=== PATIENT | female | born 2000 | race Caucasian/White ===

== ENCOUNTER 2022-05-12 12:06 | Emergency (ER) | payer OTHER, SELFPAY ==
--- NOTE | ~2022-05-12 | XR_ITS ---
EXAMINATION: XR hand RT min 3V DATE: 05/12/2022 12:30 INDICATION: Hyperflexion injury to the right second and third digits with pain at the distal interpha langeal joints TECHNIQUE: Posteroanterior, oblique and lateral views of the right hand were obtained. COMPARISON: None. FINDINGS: Nondisplaced avulsion fracture at the dorsal base of the third distal phalanx with <1 mm separation o f the cortices at the dorsal fracture margin and no appreciable fracture gap or incongruity at the ar ticular surface. Alignment is otherwise normal. No other fractures identified. Joint spaces are clark l. Mild soft tissue swelling about the distal third digit. IMPRESSION: 1. Nondisplaced intra-articular fracture at the dorsal base of the right third distal phalanx. Reviewed, dictated and finalized at location B.
[2022-05-12 12:20] VITALS: BP 123/80; PULSE 73; RESP 16; TEMP 36.7; O2SAT 98
[2022-05-12 12:27] VITALS: BP 123/80; PULSE 73; RESP 16; TEMP 36.7; O2SAT 98
--- NOTE | 2022-05-12 12:28 | ED.UPPEXIN ---
HPI - Extremity Injury (Upper) General Chief Complaint: Extremity Injury, Upper Stated Complaint: Right Finger Injury Time Seen by Provider: 05/12/22 12:28 Source: patient Mode of arrival: ambulatory Limitations: no limitations History of Present Illness HPI narrative: 21 yo F presents with pain and swelling to distal aspect R middle finger since yesterday. 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 Yesterday was helping and camper and they landed on pt's R hand. distal NV intact. ROM decreased due to pain. All systems reviewed and negative except as noted above. Related Data Home Medications Medication Instructions Recorded Confirmed melatonin 3 mg capsule 3 mg PO HS 05/12/22 05/12/22 norethindrone 1.5 mg-ethinyl 1 tablet PO DAILY 05/12/22 05/12/22 estradiol 30 mcg(21)/iron 75 mg(7) tablet ([place] Fe 1.5/30 (28)) sertraline 100 mg tablet 100 mg PO DAILY 05/12/22 05/12/22 Allergies Allergy/AdvReac Type Severity Reaction Status Date / Time azithromycin Allergy Unknown Verified 05/12/22 12:26 Review of Systems Review of Systems: CONSTITUTIONAL: Denies fever, chills, or sweats. EYES: Denies visual changes, redness, or discharge. ENT: Denies rhinorrhea, congestion, sore throat, or otalgia. CARDIOVASCULAR: Denies chest pain, palpitations, or edema. RESPIRATORY: Denies cough or dyspnea. GASTROINTESTINAL: Denies abdominal pain, nausea, vomiting, or diarrhea. GENITOURINARY: Denies dysuria or hematuria. SKIN: Denies rash or itching. MUSCULOSKELETAL: Reports pain and swelling of to the distal aspect right middle finger. NEUROLOGIC: Denies headache, numbness, or weakness. PSYCHIATRIC: Denies anxiety or depression. All other systems reviewed are negative, except as documented in HPI. PMFSH Comments At time of signature, agree with nursing past medical, surgical, social and family history. There is no relevant family history pertinent to the presenting complaint. Exam Narrative: GENERAL: This is a well-nourished, well-developed patient, in no apparent distress. HEAD: normocephalic, atraumatic. EYES: PERRL. Sclera clear/white. Vision is grossly intact. EARS: External ears normal NOSE: External nose normal NECK: Neck supple, non-tender without lymphadenopathy, masses or thyromegaly. CARDIOVASCULAR: Regular rate and rhythm without murmurs, gallops, or rubs. RESPIRATORY: Clear to auscultation. Breath sounds equal bilaterally. No wheezes, rales, or rhonchi. SKIN: warm, Dry, intact with no suspicious lesions or rash, good texture and turgor. NEURO: awake, alert, and oriented to person, place and time. There were no obvious focal neurologic abnormalities. EXTREMITIES: No effusion, or edema noted. Tenderness to distal phalanx and DIP of R middle finger. mild swelling. distal NV intact. Course Course Level of Care: Express Care Visit Vital Signs Vital signs: Vital Signs Temperature 36.7 C 05/12/22 12:20 Pulse Rate 73 05/12/22 12:20 Respiratory Rate 16 05/12/22 12:20 Blood Pressure 123/80 05/12/22 12:20 Pulse Oximetry 98 05/12/22 12:20 Oxygen Delivery Room Air 05/12/22 12:20 Temperature 36.7 C 05/12/22 12:27 Pulse Rate 73 05/12/22 12:27 Respiratory Rate 16 05/12/22 12:27 Blood Pressure 123/80 05/12/22 12:27 Pulse Oximetry 98 05/12/22 12:27 Oxygen Delivery Room Air 05/12/22 12:27 reviewed MDM - Extremity Injury (Upper) MDM Narrative Medical decision making narrative: discussed x-ray results with pt. fracture is nondisplaced. recommend follow up with PCP in 2 to 3 wks. placed in finger splint by [employer]. Patient is aware of diagnosis, understands and agrees to treatment plan. Anticipatory guidance given. Patient agrees to follow-up as directed and is aware of reasons to seek care at the emergency department. Portions of this record may have been created with voice recognition software [employer]
== END 2022-05-12 12:54 | disposition home or self-care (01) ==
PROVIDERS: Emergency Provider Nurse Practitioner Family
DX: S62.662A Nondisplaced fracture of distal phalanx of right middle finger, initial encounter for closed fracture (principal); W51.XXXA Accidental striking against or bumped into by another person, initial encounter; Y99.0 Civilian activity done for income or pay; J45.909 Unspecified asthma, uncomplicated; F32.A Depression, unspecified
CPT/HCPCS: 29130; 73130; 99214; G0463